=== PATIENT | female | born 1935 | race Caucasian/White ===

== ENCOUNTER 2017-02-09 21:35 | Emergency (ER) | payer OTHER ==
[~2017-02-09] VITALS: Ht 165.1 cm; Wt 74.8 kg
--- NOTE | ~2017-02-09 | EKG ---
[address] [place] [address] ELECTROCARDIOGRAM REPORT Name: YESICA LOJA [id number] Admission: 02/09/17 Attend Phys: Discharge: 02/10/17 Date of : 35 Report #: [id number] THIS REPORT FOR: //name// [facility] ED Test Date: 2017-02-09 Test Time: 23:00:04 Pat Name: YESICA LOJA Department: Room: Gender: F [employer]: HARRIET : 1935 Requested By: Stalin Rodriguez Order Number: [id number] MD: Osei Steven Measurements Intervals Martin Rate: 93 P: 13 ND: 183 QRS: -32 QRSD: 97 T: 26 QT: 391 QTc: 487 Interpretive Statements Sinus rhythm Atrial premature complexes Left ventricular hypertrophy Poor R wave progression No previous ECG available for comparison Electronically Signed On 02-10-2017 7:24:39 CDT by Osei Steven [email or web address] <ELECTRONICALLY SIGNED> By: Osei Steven MD, [facility] 02/10/17 0724 2300 2300 Osei Steven MD, FACC /EPI
[~2017-02-09 21:35] MED LIST: ALLEGRA ALLERGY60 MG PO; AMBIEN 5 MG TABL5 M1 PO; CELEBREX 200 M200 M1 PO; CRESTOR10 MG PO; METFORMIN HCL500 MG PO; OMEPRAZOLE20 M2 PO
[2017-02-09 23:09] LABS: EOSINOPHILS 8.4 % (0.0-3.0); HEMATOCRIT 41.8 % (37.0-47.0); HEMOGLOBIN 14.1 gm/dL (12.0-15.0); LYMPHOCYTES 28.6 % (24.0-44.0); MANUAL DIFF NO; MCH 28.2 pg (26.0-34.0); MCHC 33.7 g/dL (28.0-37.0); MCV 83.8 fL (80.0-100.0); PLATELET COUNT 259 thou/uL (150-400); RBC 4.99 mil/uL (4.20-5.00); RDW 14.7 % (10.5-14.5); WBC 7.6 thou/uL (4.0-11.0)
[2017-02-09 23:20] LABS: ANION GAP 8 mmol/L (7-16); BUN 21 mg/dL (7-18); CHLORIDE 100 mmol/L (98-107); CO2 28 mmol/L (21-32); CREATININE 0.7 mg/dL (0.6-1.0); GLUCOSE 104 mg/dL (74-106); POTASSIUM 3.7 mmol/L (3.5-5.1); SODIUM 136 mmol/L (136-145)
[2017-02-09 23:27] LABS: TROPONIN-I < 0.04 ng/mL (<0.04-0.07)
[2017-02-09] MEDS ORDERED: PREDNISONE 20 M20 MG PO (23:44)
[2017-02-09] MEDS ORDERED: VENTOLIN HFA 1818 GM INH (23:44)
[2017-02-10 00:21] VITALS: BP 152/88
== END 2017-02-10 00:26 | disposition home or self-care (01) ==
LOC: ER 21:35
PROVIDERS: Emergency Medicine
DX: J20.9 Acute bronchitis, unspecified (principal); J21.9 Acute bronchiolitis, unspecified; E11.9 Type 2 diabetes mellitus without complications; Z90.710 Acquired absence of both cervix and uterus; Z90.49 Acquired absence of other specified parts of digestive tract; Z88.5 Allergy status to narcotic agent; Z88.0 Allergy status to penicillin; Z88.2 Allergy status to sulfonamides